=== PATIENT | female | born 1960 | race Caucasian/White ===

== ENCOUNTER 2019-03-03 11:10 | Inpatient (IN) | payer OTHER ==
[2019-03-25] MEDS ORDERED: SIMVASTATIN40 MG PO (07:54)
[2019-03-27] MEDS ORDERED: INTESTINEX680 M1 PO (11:46)
[2019-03-27] MEDS ORDERED: PERCOCET 5-3251 EACH PO (11:46)
[2019-03-27] MEDS ORDERED: OMEPRAZOLE20 MG PO (11:46)
== END 2019-03-27 12:49 | disposition home or self-care (01) | DRG 331 ==
LOC: SURG 03-18 09:15 → O/R 03-25 07:10 → SURH 03-25 07:10 → SURG 03-25 09:15 → SURH 03-25 14:26 → SURG 03-25 15:00 → SURH 03-27 12:49
PROVIDERS: ADMIT Surgery
PROC: 0DTN4ZZ Resection of Sigmoid Colon, Percutaneous Endoscopic Approach (ICD-10-PCS; principal; 2019-03-25 15:00)
DX: K57.32 Diverticulitis of large intestine without perforation or abscess without bleeding (principal); R10.32 Left lower quadrant pain; E78.49 Other hyperlipidemia

== ENCOUNTER → 2020-01-16 | Day surgery (SDC) | payer OTHER ==
[~2020-01-16] MED LIST: INTESTINEX680 M1 PO; OMEPRAZOLE20 MG PO; PERCOCET 5-3251 EACH PO; SIMVASTATIN40 MG PO
== END | disposition home or self-care (01) ==
LOC: ADM 01-12 12:30 → AMB-ENDOS 06:33
PROVIDERS: ATTEND Surgery
DX: K57.32 Diverticulitis of large intestine without perforation or abscess without bleeding (principal); Z20.828 Contact with and (suspected) exposure to other viral communicable diseases